=== PATIENT | female | born 1970 | race Two or more races ===

== ENCOUNTER 2022-03-26 19:47 | Emergency (ER) | payer OTHER ==
[~2022-03-26] VITALS: Ht 154.9 cm; Wt 75.3 kg
[2022-03-26] MEDS ORDERED: GLUMETZA500 MG PO (19:59)
== END 2022-03-26 23:38 | disposition home or self-care (01) ==
LOC: ER 19:47
DX: R10.31 Right lower quadrant pain (principal); K80.20 Calculus of gallbladder without cholecystitis without obstruction; E11.9 Type 2 diabetes mellitus without complications; Z79.84 Long term (current) use of oral hypoglycemic drugs

== ENCOUNTER 2022-08-14 09:15 | Outpatient (CLI) | payer OTHER ==
[~2022-08-14 09:15] MED LIST: GLUMETZA500 MG PO
== END 2022-08-14 09:20 | disposition home or self-care (01) ==
LOC: SONOGRAMA 09:15
PROVIDERS: ATTEND Pathology Anatomic Pathology & Clinical Pathology
DX: E04.1 Nontoxic single thyroid nodule (principal)

== ENCOUNTER 2023-05-20 16:01 | Emergency (ER) | payer OTHER ==
[~2023-05-20] VITALS: Ht 157.5 cm; Wt 77.1 kg
[~2023-05-20 16:01] MED LIST changes: +VISTARIL25 MG PO
[2023-05-20] MEDS ORDERED: ZOFRAN8 MG PO (19:40)
== END 2023-05-20 19:44 | disposition home or self-care (01) ==
LOC: ER 16:01
PROVIDERS: Emergency Medicine
DX: R11.0 Nausea (principal); R53.81 Other malaise; Z20.822 Contact with and (suspected) exposure to COVID-19

== ENCOUNTER 2024-10-31 10:53 | Emergency (ER) | payer OTHER ==
[~2024-10-31] VITALS: Ht 157.5 cm; Wt 73.9 kg
[~2024-10-31 10:53] MED LIST changes: +ZOFRAN8 MG PO
[2024-10-31 12:28] LABS: HEMATOCRIT 38.6 % (36.0-45.00); HEMOGLOBIN 12.9 g/dL (12.0-15.00); MEAN CELL VOLUME 85.3 fL (80.00-100.00); MEAN CORPUSCULAR HEMOGLOBIN 28.6 pg (27.00-32.0); MEAN CORPUSCULAR HGB CONC 33.5 g/dl (32.0-36.0); PLATELET COUNT 298 K/uL (150-450); RED BLOOD COUNT 4.53 M/uL (4.00-6.00); RED CELL DISTRIBUTION WIDTH 13.3 % (11.5-14.5)
[2024-10-31 13:09] LABS: URINE APPEARANCE Clear; URINE BILIRRUBIN Negative (NEGATIVE); URINE BLOOD NHT; URINE COLOR Yellow; URINE GLUCOSE Negative (NEGATIVE); URINE KETONE Negative (NEGATIVE); URINE LEUKOCYTE Negative; URINE NITRATE Negative; URINE PROTEIN Negative (NEGATIVE); URINE UROBILINOGEN 0.2 E.U./dl
[2024-10-31 13:13] LABS: URINE BACTERIA 1381.5 uL (0.0-1933); URINE EPITHELIAL CELLS 45.8 uL (0.0-38.8); URINE RBC 2.7 uL (0.0-20.8)
[2024-10-31 13:19] LABS: URINE CAST 1.17 uL (0.0-1.40)
== END 2024-10-31 14:47 | disposition home or self-care (01) ==
LOC: ER 10:55
PROVIDERS: Emergency Medicine
DX: R10.2 Pelvic and perineal pain (principal)